=== PATIENT | male | born 1995 | race Caucasian/White ===

== ENCOUNTER 2020-06-22 05:18 | Emergency (ER) | payer MEDICAID, OTHER ==
[~2020-06-22] VITALS: Ht 182.9 cm; Wt 81.6 kg
[2020-06-22 05:20] VITALS: BP 130/73
--- NOTE | 2020-06-22 05:20 | NUR ---
ED Nurse Note: pt MELI HARRIS [id number] from home for medication refills. Pt states his phone was hacked and currently doesnt have a phone and for this reason has not been able to see his PMD.
[2020-06-22] MEDS ORDERED: CLONIDINE0.1 MG GT (05:31)
[2020-06-22] MEDS ORDERED: LYRICA150 MG ORAL (05:31)
--- NOTE | 2020-06-22 05:32 | Emergency Room Report ---
History of Present Illness General Chief Complaint: Medication Refill Source: Patient Present Illness HPI This is a 24-year-old male with a history of ADHD and anxiety. He presents with a chief complaint of anxiety and medication refill. He said that he woke up tonight and he could not find his medication. Also claimed that his car would not start. He claimed that his apple ID was hacked and therefore he can start his car. He called 911. He complaining of diarrhea and abdominal pain. He said he felt anxious. Nothing made it better. Nothing made it worse. He said that he is out of his clonidine, Lyrica, ADHD medication, Klonopin and Subutex. Denies suicidal thoughts or homicidal thoughts. Allergies: Coded Allergies: No Known Allergies (Unverified , 06/22/20) COVID-19 Screening Contact w/high risk pt: No Experienced COVID-19 symptoms?: No COVID-19 Testing performed COLLAR TURNER: No Patient History Past Medical History: see triage record, old chart reviewed, psych hx Past Surgical History: none Pertinent Family History: none Social History: Denies: smoking Immunizations: other Reviewed Nursing Documentation: PMH: Agreed; PSxH: Agreed Review of Systems Eye: Denies: eye pain, blurred vision ENT: Denies: ear pain, nose congestion, throat swelling Respiratory: Denies: cough, shortness of breath Cardiovascular: Denies: chest pain, palpitations Gastrointestinal: Reports: abdominal pain; Denies: diarrhea, nausea, vomiting Musculoskeletal: Denies: back pain, joint pain Skin: Denies: rash Neurological: Denies: headache, numbness Endocrine: Denies: increased thirst, increased urine Hematologic/Lymphatic: Denies: easy bruising All Other Systems: negative except mentioned in HPI Physical Exam Vital Signs Date Time Temp Pulse Resp B/P (MAP) Pulse Ox O2 Delivery O2 Flow Rate FiO2 06/22/20 05:19 97.0 68 18 134/70 (91) 99 Room Air Vitals normal Sp02 EP Interpretation: reviewed, normal General Appearance: well appearing, no apparent distress, alert Head: normocephalic, atraumatic Eyes: bilateral eye PERRL, bilateral eye EOMI ENT: hearing grossly normal, normal pharynx Neck: full range of motion, supple, no meningismus Respiratory: chest non-tender, lungs clear, normal breath sounds Cardiovascular #1: regular rate, rhythm, no murmur Gastrointestinal: normal bowel sounds, non tender, no mass, no organomegaly, no bruit, non-distended Musculoskeletal: back normal, normal range of motion, gait/station normal Psychiatric: anxious Medical Decision Making Diagnostic Impression: Primary Impression: Encounter for medication refill Additional Impression: Anxiety ER Course Patient presents with anxiety and here for medication refill. I explained to him that I will not be refilling chronic medication. He can follow-up with his primary care doctor later on today for refills. On the [facility] system, he just got refills on his ADHD medication, clonazepam on June 09 and . He also got his Subutex refill on May 29. I see no criteria for 5150. He is not suicidal or homicidal. Last Vital Signs Date Time Temp Pulse Resp B/P (MAP) Pulse Ox O2 Delivery O2 Flow Rate FiO2 06/22/20 05:19 97.0 68 18 134/70 (91) 99 Room Air Status: improved Disposition: HOME, SELF-CARE Condition: Stable Scripts Pregabalin (LYRICA) 150 Mg Capsule 150 MG ORAL TWICE A DAY, #30 CAP Prov: Clinton Galvan MD 06/22/20 Clonidine HCl (Clonidine HCl) 0.1 Mg Tablet 0.1 MG GT TID, #30 TAB Prov: Clinton Galvan MD 06/22/20 Patient Instructions: Medicine Refill at the Emergency Department Additional Instructions: Follow-up with your doctor in 1 to 2 days for refill on your controlled substance medication. Return if symptoms worsen. Clinton Galvan MD Jun 22, 2020 05:32
[2020-06-22 05:40] VITALS: BP 138/69
--- NOTE | 2020-06-22 05:40 | NUR ---
ER DISCHARGE NOTE: Patient is cleared to be discharged per ERMD, pt is aox4, on room air, with stable vital signs. pt was given dc and paper prescriptions given, pt was able to verbalize understanding, pt id band removed. pt is able to ambulate with steady gait. pt took all belongings.
[2020-06-22] MEDS ORDERED: LORazepam 1mg tab ORAL ONE (05:45)
== END 2020-06-22 05:45 | disposition home or self-care (01) ==
LOC: EDBD 05:18 → EMR 05:45
DX: Z76.0 Encounter for issue of repeat prescription (principal); F41.9 Anxiety disorder, unspecified; F90.9 Attention-deficit hyperactivity disorder, unspecified type
CPT/HCPCS: 99282